=== PATIENT | female | born 1940 | race Caucasian/White ===

== ENCOUNTER → 2016-09-08 | Outpatient (CLI) | payer MEDICARE ==
[~2016-09-08] MED LIST: ASPI-496 PO; ASPI-515 PO; CINN500C2 PO; CITA20TA9 PO; DILT120T3 PO; ISOS30TA19 PO; KETO10TA PO; LACT1CAP35 PO; LEVO50TA5 PO; LEVO75TA5 PO; LISI2.5T PO; METO50TA82 PO; PROM25SU34 PO; [UNRECOGNIZED DRUG - OTHER] PO; tumeric PO
[2016-09-08 13:58] LABS: SRC-FLAG NOT PRESENT; XTAL-FLAG NOT PRESENT; YLC-FLAG NOT PRESENT
[2016-09-08 13:59] LABS: PATH.CAST-FLAG NOT PRESENT; SPERM-FLAG NOT PRESENT
[2016-09-08 14:08] LABS: ASPARTATE AMINO TRANSFERASE 15 U/L (15-37); BLOOD UREA NITROGEN 19 mg/dL (7-18)
== END | disposition home or self-care (01) ==
LOC: STAR 13:06
PROVIDERS: ATTEND Orthopaedic Surgery Orthopaedic Surgery of the Spine
DX: Z01.818 Encounter for other preprocedural examination (principal); M46.1 Sacroiliitis, not elsewhere classified
CPT/HCPCS: 36415; 71020; 80053; 81001; 85025; 93005

== ENCOUNTER 2016-09-14 11:03 | Inpatient (IN) | payer MEDICARE ==
[~2016-09-14] VITALS: Ht 162.6 cm; Wt 91.0 kg
[2016-09-14] MEDS ORDERED: LACTATED RINGERS 1,000 ML IV SCH (11:45)
[2016-09-14 12:22] VITALS: BP 122/69
[2016-09-14] MEDS ORDERED: FENTANYL PF 250 MCG/5ML ONE (13:16)
[2016-09-14] MEDS ORDERED: MIDAZOLAM 1 MG/ML, 2ML ONE (13:17)
[2016-09-14] MEDS ORDERED: BACITRACIN 50,000 UNIT ONE (14:04)
[2016-09-14] MEDS ORDERED: THROMBIN 5,000 UNIT VIAL TP ONE (14:04)
[2016-09-14] MEDS ORDERED: NEOSPORIN OINT, 15GM ONE (14:04)
[2016-09-14] MEDS ORDERED: BUPIVACAINE/PF-EPI 0.5% 1:200K ONE (14:04)
[2016-09-14] MEDS ORDERED: ONDANSETRON 2MG/ML, 2ML ONE (14:18)
[2016-09-14] MEDS ORDERED: ROCURONIUM 10 MG/ML ONE (14:18)
[2016-09-14] MEDS ORDERED: PROPOFOL 10 MG/ML, 20ML ONE (14:18)
[2016-09-14] MEDS ORDERED: SUCCINYLCHOLINE 20 MG/ML, 10ML ONE (14:18)
[2016-09-14] MEDS ORDERED: CEFAZOLIN 1,000 MG ONE (14:18)
[2016-09-14] MEDS ORDERED: ONDANSETRON 2MG/ML, 2ML IVPush PRN (14:30)
[2016-09-14] MEDS ORDERED: FENTANYL PF 100 MCG/2ML ONE (15:50)
[2016-09-14] MEDS: FENTANYL PF 100 MCG/2ML IV PRN ×4 (15:55→16:24)
[2016-09-14] MEDS: ACETAMINOPHEN 325 MG TABLET PO PRN ×2 (16:26→22:44)
[2016-09-14] MEDS ORDERED: ACETAMINOPHEN 650 MG/20.3 ML UDC ONE (16:26)
[2016-09-14 17:05] VITALS: BP 137/65
[2016-09-14] MEDS: PROMETHAZINE 25 MG/ML, 1ML IM PRN ×2 (18:46→22:45)
[2016-09-14 18:51] VITALS: BP 137/68
[2016-09-14] MEDS ORDERED: TUMERIC PO SCH (21:00)
[2016-09-14] MEDS: LACTATED RINGERS 1,000 ML IV SCH (22:44)
[2016-09-14 23:58] VITALS: BP 99/61
[2016-09-15] MEDS: PROMETHAZINE 25 MG/ML, 1ML IM PRN ×5 (03:42→21:25)
[2016-09-15 04:03] VITALS: BP 124/66
[2016-09-15] MEDS: LEVOTHYROXINE 50 MCG TABLET PO SCH (05:37)
[2016-09-15] MEDS: ACETAMINOPHEN 325 MG TABLET PO PRN ×4 (05:37→21:25)
[2016-09-15] MEDS ORDERED: CINNAMON BARK PO SCH (09:00)
[2016-09-15] MEDS: LACTOBACILLUS CHEW TABLET PO SCH (09:28)
[2016-09-15] MEDS: CITALOPRAM 20 MG TABLET PO SCH (09:28)
[2016-09-15 09:56] VITALS: BP 106/60
[2016-09-15] MEDS ORDERED: PNEUMOCOCCAL 23 VACCINE IM-VACC ONE (13:00)
[2016-09-15] MEDS: LACTATED RINGERS 1,000 ML IV SCH (13:27)
[2016-09-15 14:10] VITALS: BP 105/58
[2016-09-15 19:28] VITALS: BP 127/68
[2016-09-16] MEDS: LACTATED RINGERS 1,000 ML IV SCH ×2 (01:44→14:30)
[2016-09-16 02:10] VITALS: BP 114/62
[2016-09-16] MEDS: LEVOTHYROXINE 50 MCG TABLET PO SCH (06:29)
[2016-09-16] MEDS: ACETAMINOPHEN 325 MG TABLET PO PRN (06:29)
[2016-09-16] MEDS: PROMETHAZINE 25 MG/ML, 1ML IM PRN (06:30)
[2016-09-16 07:13] VITALS: BP 120/62
[2016-09-16] MEDS: CITALOPRAM 20 MG TABLET PO SCH (08:15)
[2016-09-16] MEDS: LACTOBACILLUS CHEW TABLET PO SCH (08:15)
[2016-09-16] MEDS ORDERED: ALBUTEROL SULFATE 2.5 MG/3 ML ONE (13:27)
[2016-09-16 14:09] VITALS: BP 126/63
[2016-09-16 19:17] VITALS: BP 124/65
[2016-09-17] MEDS: ACETAMINOPHEN 325 MG TABLET PO PRN (00:29)
[2016-09-17 02:54] VITALS: BP 111/65
[2016-09-17] MEDS: LACTATED RINGERS 1,000 ML IV SCH (03:50)
[2016-09-17] MEDS: LEVOTHYROXINE 50 MCG TABLET PO SCH (06:35)
[2016-09-17 07:42] VITALS: BP 126/70
[2016-09-17] MEDS: LACTOBACILLUS CHEW TABLET PO SCH (07:50)
[2016-09-17] MEDS: CITALOPRAM 20 MG TABLET PO SCH (07:50)
[2016-09-17 11:30] VITALS: BP 115/58
[2016-09-17] MEDS ORDERED: CEPH-368 PO (11:47)
[2016-09-17] MEDS ORDERED: TRAM50TA2 PO (11:48)
== END 2016-09-17 12:00 | disposition home or self-care (01) | DRG 460 ==
LOC: ORIP 11:03 → 4NOR 16:58 → DCLOUNGE 09-17 11:45
PROVIDERS: ADMIT Orthopaedic Surgery Orthopaedic Surgery of the Spine; ATTEND Orthopaedic Surgery Orthopaedic Surgery of the Spine
PROC: 0SG70KZ Fusion of Right Sacroiliac Joint with Nonautologous Tissue Substitute, Open Approach (ICD-10-PCS; principal; 2016-09-14 14:00)
DX: M46.1 Sacroiliitis, not elsewhere classified (principal); M13.88 Other specified arthritis, other site; Z88.6 Allergy status to analgesic agent; Z88.5 Allergy status to narcotic agent; Z23 Encounter for immunization
CPT/HCPCS: 71010; 72202; 76000; 82962; 90732; 94640; J0690; J2250; J2405; J2550; J2704; J3010; C1762; C1776; J0330; J7120